=== PATIENT | female | born 1980 | race Caucasian/White ===

== ENCOUNTER 2024-03-26 10:08 | Emergency (ER) | payer MEDICAID ==
[2024-03-26] MEDS: Sodium Chloride 0.9% 500 ML IV ONE (11:59)
[2024-03-26] MEDS: cefTRIAXone 2 GM in Water For Injection, Sterile 20 ML IV ONE (12:07)
[2024-03-26] MEDS: Ondansetron 4 MG/2 ML SDV IVPUSH ONE (12:13)
[2024-03-26] MEDS: cefTRIAXone 2 GM in Sodium Chloride 0.9% 100 ML IV ONE (12:14)
[2024-03-26] MEDS: Ketorolac 30 MG/ML SDV IVPUSH ONE (13:33)
[2024-03-26] MEDS ORDERED: Lidocaine 1% 10 ML MDV INJECT ONE (14:44)
== END 2024-03-26 15:20 | disposition home or self-care (01) ==
LOC: JD.ED 10:08
DX: N61.1 Abscess of the breast and nipple (principal); F17.210 Nicotine dependence, cigarettes, uncomplicated; Z88.0 Allergy status to penicillin; Z88.5 Allergy status to narcotic agent; Z88.8 Allergy status to other drugs, medicaments and biological substances; Z79.899 Other long term (current) drug therapy
CPT/HCPCS: 76642; 96361; 96374; 96375; 99283; J0696; J1885; J2405; J7030; J3490